=== PATIENT | male | born 1975 | race Caucasian/White ===

== ENCOUNTER 2021-03-27 21:52 | Emergency (ER) | payer BC ==
[~2021-03-27] VITALS: Ht 175.3 cm; Wt 73.0 kg
[2021-03-27] MEDS ORDERED: ONDANSETRON HCL 4MG/2ML INJ IV STA (23:48)
[2021-03-27] MEDS ORDERED: KETOROLAC 30MG/ML VIAL IV STA (23:48)
[2021-03-28] MEDS ORDERED: SODIUM CHLORIDE 0.9% 1,000 ML IV ONE
[2021-03-28 00:07] LABS: HEMATOCRIT. 37.9 % (42.0-52.0); HEMOGLOBIN. 13.2 g/dL (14.0-18.0); MEAN CORPUSCULAR VOLUME 86.1 fL (80.0-94.0); MEAN PLATELET VOLUME 7.3 fl (7.4-10.4); PLATELET 355 x1000/uL (130-400); RED CELL DISTRIBUTION WIDTH 13.4 % (11.6-14.6)
[2021-03-28] MEDS ORDERED: MORPHINE SULFATE 4 MG/ML CPJ (NOT FOR IM USE) IV ONE (00:15)
[2021-03-28] MEDS ORDERED: DIPHENHYDRAMINE 50MG/ML VIAL IV ONE (00:15)
[2021-03-28 00:18] LABS: CHLORIDE 107 mEq/L (98-107)
[2021-03-28 01:42] LABS: PLATELET ESTIMATE NORMAL
[2021-03-28] MEDS ORDERED: ONDA4TAB5 MT (03:36)
[2021-03-28] MEDS ORDERED: HYDR-4001 MT (03:38)
[2021-03-28 03:47] LABS: CLARITY URINE CLEAR (CLEAR); COLOR URINE YELLOW (YELLOW); KETONES URINE NEGATIVE (NEGATIVE); LEUKOCYTE ESTERASE URINE NEGATIVE (NEGATIVE); NITRITE URINE NEGATIVE (NEGATIVE); OCCULT BLOOD URINE 2+ (NEGATIVE); PH URINE 5.5 (4.5-8.0); PROTEIN URINE TRACE (NEGATIVE); UROBILINOGEN URINE 0.2 E.U./dL (0.2-1.0)
[2021-03-28 04:32] VITALS: BP 128/81
== END 2021-03-28 04:39 | disposition home or self-care (01) ==
LOC: ER 21:52
DX: N20.0 Calculus of kidney (principal); Z88.6 Allergy status to analgesic agent; Z98.890 Other specified postprocedural states
CPT/HCPCS: 36415; 74176; 80053; 81003; 83690; 85025; 96361; 96374; 96375; 99284; J1200; J2270; J2405; J7030